=== PATIENT | female | born 1965 | race Caucasian/White ===

== ENCOUNTER 2017-01-25 07:20 | Day surgery (SDC) | payer BC ==
[~2017-01-25] VITALS: Ht 165.1 cm; Wt 69.4 kg
[2017-01-25 07:36] LABS: HCG,QUAL RESULT NEGATIVE (NEGATIVE)
[2017-01-25] MEDS ORDERED: SIMETHICONE 40 MG/0.6 ML ML ONE (07:40)
[2017-01-25] MEDS ORDERED: MEPERIDINE HCL/PF 100 MG/ML AMP ONE (07:40)
[2017-01-25] MEDS: MIDAZOLAM HCL 5 MG/5 ML VIAL ONE ×4 (08:33→08:39)
[2017-01-25 09:05] VITALS: BP_SYST 123
== END 2017-01-25 09:35 | disposition home or self-care (01) ==
LOC: SDS 07:20 → SMU 07:21 → SDS 09:35
PROVIDERS: ATTEND Internal Medicine Gastroenterology
DX: Z12.11 Encounter for screening for malignant neoplasm of colon (principal); K57.30 Diverticulosis of large intestine without perforation or abscess without bleeding; K64.8 Other hemorrhoids
CPT/HCPCS: 45378; 84703; J2175; J2250; J7030